=== PATIENT | female | born 1970 | race African-American/Black ===

== ENCOUNTER 2017-02-10 22:31 | Emergency (ER) | payer OTHER ==
[2017-02-10 23:08] VITALS: BP 140/84
[2017-02-10] MEDS ORDERED: Lidocaine 1% 5ml(IM or SUTURE)(PAIN CLINIC) IJ ONE (23:13)
[2017-02-10] MEDS ORDERED: cefTRIAXone SODIUM 1 GM VIAL IM ONE (23:13)
[2017-02-10] MEDS ORDERED: guaiFENesin DM 100 MG/10 MG/5 ML 118ML BOTTLE PO ONE (23:13)
[2017-02-10] MEDS ORDERED: IPRATROPIUM/ALBUTEROL SULFATE 3 ML AMPUL.NEB NEB ONE (23:13)
[2017-02-10] MEDS ORDERED: SODIUM CHLORIDE 3 ML VIAL.NEB IH ONE (23:18)
[2017-02-10] MEDS ORDERED: BUDESONIDE 0.5MG/2ML AMPUL.NEB NEB ONE (23:18)
[2017-02-10] MEDS ORDERED: BUDESONIDE 0.5MG/2ML AMPUL.NEB NEB SCH (23:45)
--- NOTE | 2017-02-11 00:04 | ED Physician Documentation ---
Upper Respiratory Symptoms - HISTORIAN Historian: patient - HPI Stated Complaint: Increasing Resp. difficulties past week, coughing up green phlegm Chief Complaint: Cough/ Upper Respiratory Additional Information: cough x 1 week, prod of yellow sputum Onset: days ago (7) Duration: sudden-Onset Context: denies: recent foreign travel, insect bite(s), tick(s), recent chemotherapy, multiple patients, same sx Severity: moderate Associated Symptoms: chills, sinus drainage, sore throat, productive cough Worsened by Deep Breath: Yes Further Comments: no - ROS CONST/EYES: denies: weakness, eye redness, eye itching CVS/RESP: chest pain (hurts to breathe) LYMPH: denies: leg swelling, rash, swollen glands, ankle swelling GI/: none NEURO/PSYCH: denies: fainting, dizziness, confusion, anxiety, depression MS/SKIN: denies: joint pain, muscle aches, rash - PAST HX Lung Disease: asthma PE Risk Factors: none Other History: diabetes Type 2 Immunizations: referred to PCP Allergies/Adverse Reactions: Allergies Allergy/AdvReac Type Severity Reaction Status Date / Time Penicillins Allergy Severe Anaphylaxis Verified 02/10/17 23:12 hydrocodone bitartrate AdvReac Mild Headache Verified 02/10/17 23:12 [From Vicodin] Home Medications: Ambulatory Orders Medication Instructions Recorded Lisinopril [Lisinopril] 5 mg PO D 04/28/13 Metformin HCl [Glucophage] 2,000 mg PO D 04/28/13 Albuterol Sulfate [Proair 2 puff IH Q4-6 PRN 08/24/15 Respiclick] Simvastatin [Zocor] 10 mg PO DAILY 08/24/15 Fluticasone Propionate [Flonase 1 inh NS DAILY #1 bottle 08/27/15 Allergy Relief] - SOCIAL HX Smoking History: non-smoker Alcohol Use: none Drug Use: none - FAMILY HX Family History: no significant history - VITAL SIGNS Vital Signs: Vital Signs Temp Pulse Resp BP Pulse Ox 100.1 F H 110 H 18 140/84 97 02/10/17 22:31 02/10/17 22:31 02/10/17 22:31 02/10/17 22:31 02/10/17 22:31 - REVIEWED ASSESSMENTS Nursing Assessment Reviewed: Yes Vitals Reviewed: Yes Progress - Results/Orders Results/Orders: cxr, flu a and b ordered - Progress Progress: pt. given duoneb tx, pulmicort tx, rocephin 1 gram im in er Critical Care Note - Critical Care Note Total Time (mins): 0 ED Results Lab/Radiology - Lab Results Lab Results: flu a and b neg - Radiology Radiology Impressions: cxr right lower lobe infiltrate - Orders Orders: ED Orders Category Date Time Status CHEST 2 VIEW [CHEST P.A.&LAT 2 VIEWS] [RAD] Stat Exams 02/10/17 Ordered INFLUENZA A&B Routine Lab 02/10/17 23:03 Ordered Budesonide [Pulmicort] Med 02/10/17 23:45 Ordered 0.5 mg NEB BID Ipratropium/Albuterol Sulfate [Duoneb] Med 02/10/17 23:13 Discontinued 3 ml NEB NOW ONE Lidocaine 1% 5ml(IM or SUTURE) [Xylocaine] Med 02/10/17 23:13 Discontinued 50 mg IJ NOW ONE Sodium Chloride For Inhalation [Dey] Med 02/10/17 23:18 Discontinued 6 ml IH .STK-MED ONE cefTRIAXone SODIUM [Rocephin] Med 02/10/17 23:13 Discontinued 1 gm IM NOW ONE guaiFENesin DM [Robitussin Dm] Med 02/10/17 23:13 Discontinued 10 ml PO NOW ONE Upper Respiratory Symptoms - EXAM General Appearance: alert, mild distress EENT: eyes nml inspection, nml ENT inspection, lids & conjunct. nml, PERRL, ear nml, mucosal edema, pharynx nml Neck: normal inspection, thyroid normal, supple Respiratory: speaks full sentences, decreased air movement (right posterior base ). No: respiratory distress, accessory muscle use, wheezes, rales, stridor, resp. fatigue Abdomen: non-tender, no organomegaly, nml bowel sounds, no distention CVS: reg rate & rhythm, heart sounds normal, equal pulses Skin: color nml, no rash, warm,dry Extremities: non-tender, normal range of motion, no evidence of injury, no edema Neuro/Psych: oriented x3, neuro intact, mood/affect nml Discharge Clincal Impression: Pneumonia Qualifiers: Pneumonia type: due to unspecified organism Laterality: right Lung location: lower lobe of lung Qualified Code(s): J18.1 - Lobar pneumonia, unspecified organism Referrals: Miguel Angel Guardado MD [Primary Care Provider] - 2 Days Comments: discharged in stable condition with RA pulse ox of 97% with scripts for Keflex 500 mg 2 p.o. bid x 10 days, NoHist DM 2 tsp p.o. qid #8 oz, ProAir HFA 2 puffs qid. Condition: Stable Disposition: 01 HOME, SELF-CARE Decision to Admit: NO Decision Time: 00:03
--- NOTE | 2017-02-11 06:28 | Diagnostic Imaging Report ---
VICTOR HUGO CRUZ [facility] [id number] [facility].[address] [address] Report Submission Date: Feb 10, 2017 11:16:44 PM HURRICANE TRACKER Patient Study Name: MARIBEL LAUREANO Date: Feb 10, 2017 10:52:53 PM HURRICANE TRACKER Modality Type: CR Gender: F Description: CHEST : 66 Institution: 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 Lung manzanares are hyperinflated. The left lung field is clear.. I see no hilar or mediastinal mass. There is no pleural effusion or lesion of the bony thorax. Impression: Right perihilar infiltrate partially obscuring the right hilum Electronically signed on Feb 10, 2017 11:16:44 PM HURRICANE TRACKER by: Yusuf SANCHEZ
== END 2017-02-11 00:05 | disposition home or self-care (01) ==
LOC: ED 22:31
DX: J18.1 Lobar pneumonia, unspecified organism (principal)
CPT/HCPCS: 71020; 87400; 94640; 96372; 99283; 99284; J0696; J7626

== ENCOUNTER 2017-03-02 17:12 | Emergency (ER) | payer OTHER ==
--- NOTE | 2017-03-02 17:48 | ED Physician Documentation ---
Female Urogenital Problems - HISTORIAN Historian: patient - HPI Stated Complaint: since mid-January, pain to vaginal/groin area Chief Complaint: Female Urogenital Problems Onset: days ago Severity: severe Location of Pain: other (perineum) Further Comments: yes (46 year old woman presents with complaints of pain and excoriation in perineum area. Patient states she completed antibiotics last week for treatment of pneumonia. A few days ago began having vaginal itching and white discharge, c/o severe burning and rash over entire perineum. Patient denies foul odor, denies exposure to STD.) - Vaginal Bleeding Sexual History: active - Associated Symptoms Discharge: vaginal discharge (white) - ROS CONST: none GI/: denies: nausea, vomiting, diarrhea CVS/RESP: cough (mild, improved) EYES/ENT: none NEURO/PSYCH: none MS/SKIN/LYMPH: none Comment: Blood sugars running in the 300s. - PAST HX Past History: other (HTN, asthma, HLD) Other History: diabetes Type 2 Allergies/Adverse Reactions: Allergies Allergy/AdvReac Type Severity Reaction Status Date / Time Penicillins Allergy Severe Anaphylaxis Verified 02/10/17 23:12 hydrocodone bitartrate AdvReac Mild Headache Verified 02/10/17 23:12 [From Vicodin] Home Medications: Ambulatory Orders Medication Instructions Recorded Lisinopril [Lisinopril] 5 mg PO D 04/28/13 Metformin HCl [Glucophage] 1,000 mg PO BID 04/28/13 Albuterol Sulfate [Proair 2 puff IH Q4-6 PRN 08/24/15 Respiclick] Simvastatin [Zocor] 10 mg PO DAILY 08/24/15 Fluticasone Propionate [Flonase 1 inh NS DAILY #1 bottle 08/27/15 Allergy Relief] Aspirin [Elmer] 81 mg PO D 03/02/17 Fluconazole [Diflucan] 150 mg PO QD #7 tablet 03/02/17 Insulin Glargine,Hum.rec.anlog 70 unit SQ D 03/02/17 [Toryan Solostnikita] Nystatin Powder [Nystop] 500,000 units TP TID #1 bottle 03/02/17 - SOCIAL HX Smoking History: non-smoker - FAMILY HX Family History: denies: none - VITAL SIGNS Vital Signs: Vital Signs Temp Pulse Resp BP Pulse Ox 98.4 F 90 16 134/84 99 03/02/17 17:12 03/02/17 17:12 03/02/17 17:12 03/02/17 17:12 03/02/17 17:12 - REVIEWED ASSESSMENTS Nursing Assessment Reviewed: Yes Vitals Reviewed: Yes ED Results Lab/Radiology - Orders Orders: ED Orders Category Date Time Status UA W/MICRO IF INDICATED Stat Lab 03/02/17 17:19 Ordered Female Urogenital Problems - EXAM General Appearance: moderate distress EENT: eye inspection normal, SENAIT Respiratory: no resp. distress, breath sounds nml CVS: reg rate & rhythm, heart sounds normal, equal pulses, no murmur, no gallop , PMI nml, no JVD, no friction rub, 24 Pelvic: external exam nml, vaginal discharge (white), other (excoriation noted over entire perineum area extending to rectuam; mild white vaginal discharge. ) Skin: color nml, no rash, warm,dry Extremities: non-tender, normal range of motion, no evidence of injury, no edema , J, [employer] Neuro: oriented X3, CN's nml as tested, motor nml, sensation nml, mood/affect nml Discharge Clincal Impression: Hyperglycemia, Candidiasis of vulva and vagina Prescriptions: Fluconazole [Diflucan] 150 mg PO QD #7 tablet Nystatin Powder [Nystop] 500,000 units TP TID #1 bottle Referrals: Miguel Angel Guardado MD [Primary Care Provider] - 2 Days Additional Instructions: occupational health nurse manager your prescriptions and start them today. Cotton panties Cool air to perineum for 20 minutes 4-5 times a day Increase your Toujeo to 75 Unit daily, call Dr Velásquez in the morning and make an appointment to address your blood sugars and recheck your perineum. Condition: Stable Disposition: 01 HOME, SELF-CARE Decision to Admit: NO Decision Time: 17:49
[2017-03-02 17:59] LABS: APPEARANCE,URINE CLEAR (CLEAR); COLOR,URINE AMBER (YELLOW); OCCULT BLOOD,URINE TRACE-LYSED (NEGATIVE); PH URINE 5.5 (5.0 - 8.0); UROBILINOGEN URINE 0.2 Eu (0.2-1.0)
[2017-03-02 18:10] VITALS: BP 144/62
== END 2017-03-02 17:58 | disposition home or self-care (01) ==
LOC: ED 17:12
DX: B37.3 Candidiasis of vulva and vagina (principal); R73.9 Hyperglycemia, unspecified
CPT/HCPCS: 81002; 99282; 99283

== ENCOUNTER 2018-12-24 22:09 | Emergency (ER) | payer BC, OTHER ==
--- NOTE | 2018-12-24 22:22 | ED Physician Documentation ---
Lower Extremity Problem - HISTORIAN Historian: patient - HPI Stated Complaint: right ankle pain/swelling Chief Complaint: Lower Extremity Problem Additional Information: Patient present to ED with a 2 week history of right ankle pain and swelling. Patient states the pain is worse at the end of the day. Ibuprofen improves the pain for about 4 hours. She denies any injury. Location of Injury: R ankle Onset: days ago (14) Timing: still present Duration: intermittent episodes Where: work Severity: moderate Quality: pain, swelling, tenderness. denies: numbness, tingling Exacerbated By: other (standing long periods) Relieved By: rest Associated Symptoms: denies: chest pain, shortness of breath - ROS CONST: no problems MS/SKIN/LYMPH: ankle swelling. denies: calf pain, leg swelling, back pain CVS/RESP: denies: chest pain, shortness of breath GI/: denies: abdominal pain, vomiting, nausea EYES/ENT: denies: problems with vision NERUO/PSYCH: denies: headache - PAST HX Past History: none PE Risk Factors: hypertension Other History: diabetes Type 2 Surgeries/Procedures: none Allergies/Adverse Reactions: Allergies Allergy/AdvReac Type Severity Reaction Status Date / Time Penicillins Allergy Severe Anaphylaxis Verified 12/24/18 22:56 hydrocodone bitartrate AdvReac Mild Headache Verified 12/24/18 22:56 [From Vicodin] Home Medications: Ambulatory Orders Medication Instructions Recorded Lisinopril 5 mg PO D 04/28/13 metFORMIN HCl [Glucophage] 1,000 mg PO BID 04/28/13 Albuterol Sulfate [Proair 2 puff IH Q4-6 PRN 08/24/15 Respiclick] Simvastatin [Zocor] 10 mg PO DAILY 08/24/15 Aspirin [Elmer] 81 mg PO D 03/02/17 Insulin Glargine,Hum.rec.anlog 70 unit SQ D 03/02/17 [Toujeo Solostar] Insulin Glargine,Hum.rec.anlog 90 units SQ AM 12/24/18 [Toujeo Max Solostar] Methylprednisolone [Medrol] 4 mg PO DIRECTED #1 tab.ds.pk 12/24/18 SITagliptin PHOSPHATE [Januvia] 50 mg PO DAILY 12/24/18 - SOCIAL HX Smoking History: non-smoker Alcohol Use: none Drug Use: none - FAMILY HX Family History: none - VITAL SIGNS Vital Signs: Vital Signs Temp Pulse Resp BP Pulse Ox 98.6 F 82 14 163/93 99 12/24/18 22:10 12/24/18 22:10 12/24/18 22:10 12/24/18 22:10 12/24/18 22:10 - REVIEWED ASSESSMENTS Nursing Assessment Reviewed: Yes Vitals Reviewed: Yes ED Results Lab/Radiology - Radiology Radiology Impressions: Report Submission Date: Dec 24, 2018 11:19:24 PM CDT Patient Study Name: MARIBEL LAUREANO Date: Dec 24, 2018 10:41:51 PM CDT Modality Type: DX Gender: F Description: ANKLE 3 VIEWS OR MORE : 66 Institution: [facility] Physician: OCTAVIANO RUFF Right ankle three views History: Pain and swelling Findings: Diffuse soft tissue swelling and a plantar heel spur are observed . An osteochondral lesion is present in the medial talar dome. There is no frac ture or dislocation. Electronically signed on Dec 24, 2018 11:19:24 PM CDT by: Oswaldo Valdivia - Orders Orders: ED Orders Category Date Time Status RIGHT ANKLE [ANKLE 3 VIEWS OR MORE] [RAD] Stat Exams 12/24/18 Taken methylPREDNISolone SOD SUCC [SOLU-Medrol] Med 12/24/18 23:34 Once 125 mg IM NOW ONE Lower Extremity Problem - EXAM General Appearance: no distress Hips: bilateral hip: non-tender, normal inspection, normal range of motion, no evidence of injury Legs: bilateral: non-tender, normal inspection, normal range of motion, no evidence of injury Knees: bilateral: non-tender, normal inspection, normal range of motion, no evidence of injury Ankle: right: pain (medial malleolus), soft tissue tenderness (medial malleolus), swelling (medial malleolus) Foot: bilateral foot: non-tender, normal inspection, normal range of motion, no evidence of injury Neuro/Tendon: normal sensation, normal motor functions, normal tendon functions EENT: SENAIT RESPIRATORY: no resp distress, chest non-tender, breath sounds normal CVS: reg rate & rhythm, heart sounds normal JOINT: joints nml, nml ROM, Nml gait/weight bearing VASCULAR: no vascular compromise, pulses full/equal NEURO/PSYCH: oriented X3, mood/affect nml SKIN: warm/dry, normal color BACK: normal inspection Discharge Clincal Impression: Heel spur Qualifiers: Laterality: right Qualified Code(s): M77.31 - Calcaneal spur, right foot Right ankle pain Qualifiers: Chronicity: acute Qualified Code(s): M25.571 - Pain in right ankle and joints of right foot Prescriptions: Methylprednisolone [Medrol] 4 mg PO DIRECTED #1 tab.ds.pk Referrals: Primary Doctor,No [REFERRING] - 2 Days Additional Instructions: 1. Start Medrol dose pack on 12/25/18. This medication will increase your blood sugar. 2. Tylenol 650mg every 4 hours as needed for pain 3. Do not take Ibuprofen while taking Medrol dose pack 4. Dr. Tillman, Podiatry, will be calling with appointment information. [phone] 5. Return to ER for new or worsening symptoms Condition: Stable Disposition: 01 HOME, SELF-CARE Decision to Admit: NO Date of Decison to Admit: 12/24/18 Decision Time: 23:41
[2018-12-24] MEDS ORDERED: methylPREDNISolone SOD SUCC 125 MG/2 ML VIAL IM ONE (23:34)
[2018-12-25 00:46] VITALS: BP 138/75
--- NOTE | 2018-12-26 13:39 | Diagnostic Imaging Report ---
[facility] [address] [facility] [id number] Patient Name: MARIBEL LAUREANO Referring Physician: OCTAVIANO PEÑALOZA Date of : 1970 Radiologist: Gender: F Date of Service: 12/24/2018 Exam Requested: ANKLE 3 VIEWS OR MORE Right ankle three views History: Pain and swelling Findings: Diffuse soft tissue swelling and a plantar heel spur are observed . An osteochondral lesion is present in the medial talar dome. There is no fracture or dislocation. A
== END 2018-12-25 00:15 | disposition home or self-care (01) ==
LOC: ED 22:09
DX: M77.31 Calcaneal spur, right foot (principal); M25.571 Pain in right ankle and joints of right foot
CPT/HCPCS: 73610; 96372; 99283; 99284; J2930